=== PATIENT | male | born 1960 | race Two or more races ===

== ENCOUNTER 2024-03-01 10:21 | Emergency (ER) | payer OTHER ==
[~2024-03-01] VITALS: Ht 190.5 cm; Wt 99.3 kg
== END 2024-03-01 15:24 | disposition home or self-care (01) ==
LOC: ER 10:24
DX: J06.9 Acute upper respiratory infection, unspecified (principal); Z20.822 Contact with and (suspected) exposure to COVID-19

== ENCOUNTER 2024-05-22 11:11 | Emergency (ER) | payer OTHER ==
[~2024-05-22] VITALS: Ht 281.9 cm; Wt 104.3 kg
[2024-05-22 15:51] LABS: HEMATOCRIT 47.6 % (39.0-48.0); HEMOGLOBIN 15.8 g/dL (13-16.00); MEAN CELL VOLUME 87.4 fL (80.0-100.00); MEAN CORPUSCULAR HGB CONC 33.2 g/dl (32.0-36.0); PLATELET COUNT 165 K/uL (150-450); RED BLOOD COUNT 5.44 M/uL (4.00-6.00); RED CELL DISTRIBUTION WIDTH 14.3 % (11.5-14.5)
[2024-05-22] MEDS ORDERED: GILTUSS COUGH-118 M1 PO (18:34)
[2024-05-22] MEDS ORDERED: ACETAMINOPHEN500 M1 PO (18:34)
[2024-05-22] MEDS ORDERED: AMOX-CLAV 875-1 EACH PO (18:34)
== END 2024-05-22 19:37 | disposition home or self-care (01) ==
LOC: ER 11:12
DX: R53.81 Other malaise (principal); J06.9 Acute upper respiratory infection, unspecified; Z20.822 Contact with and (suspected) exposure to COVID-19

== ENCOUNTER 2024-07-27 16:02 | Emergency (ER) | payer OTHER ==
[~2024-07-27] VITALS: Ht 190.5 cm; Wt 104.3 kg
[~2024-07-27 16:02] MED LIST: ACETAMINOPHEN500 M1 PO; AMOX-CLAV 875-1 EACH PO; GILTUSS COUGH-118 M1 PO
[2024-07-27 16:25] VITALS: BP 128/82; O2SAT 97
[2024-07-27] MEDS ORDERED: KETOROLAC TROMETHAMINE 60 MG VIAL IM ONE ×2 (20:00→20:05)
[2024-07-27] MEDS ORDERED: IBUPROFEN600 MG PO (21:44)
== END 2024-07-28 00:31 | disposition home or self-care (01) ==
LOC: ER 16:28
DX: S60.031A Contusion of right middle finger without damage to nail, initial encounter (principal); S60.041A Contusion of right ring finger without damage to nail, initial encounter; X58.XXXA Exposure to other specified factors, initial encounter; Y93.89 Activity, other specified; Y92.018 Other place in single-family (private) house as the place of occurrence of the external cause; Y99.9 Unspecified external cause status